=== PATIENT | male | born 1965 | race Two or more races ===

== ENCOUNTER 2022-08-12 23:54 | Inpatient (IN) | payer OTHER ==
[2022-08-13 01:09] LABS: HEMATOCRIT 18.2 % (35.4-49); LYMPH % 21.1 % (8-40); MCH 25.5 pg (25.7-33.7); MCHC 32.3 g/dl (32.0-35.9); MEAN CELL VOLUME 78.8 fl (80-96); MEAN PLT VOLUME 6.3 fl (7.5-11.1); MONO % 10.2 % (3.8-10.2); NEUT % 63.7 % (42.8-82.8); PLATELET COUNT 627 10^3/uL (134-434); RBC 2.31 M/mm3 (4.00-5.60); RDW 17.9 % (11.9-15.9); WHITE BLOOD COUNT 9.8 K/mm3 (4.0-10.0)
[2022-08-13 01:14] LABS: INR 1.1 (0.83-1.09); PROTHROMBIN TIME (PATIENT) 12.7 SEC (9.7-13.0)
[2022-08-13 01:15] LABS: HEMOGLOBIN 5.9 GM/dL (11.7-16.9)
[2022-08-13 01:24] LABS: ALBUMIN 3.2 g/dl (3.4-5.0); CALCIUM 8.9 mg/dL (8.5-10.1)
[2022-08-13 01:25] LABS: BLOOD UREA NITROGEN 20.2 mg/dL (7-18)
[2022-08-13 01:27] LABS: CREATININE 1.1 mg/dL (0.55-1.3)
[2022-08-13 01:29] LABS: BILIRUBIN,TOTAL 0.2 mg/dL (0.2-1); TOT PROT 6.6 g/dl (6.4-8.2)
[2022-08-13] MEDS: PANTOPRAZOLE SODIUM 40 MG VIAL IVPUSH SCH ×2 (04:43→11:24)
[2022-08-13] MEDS ORDERED: POTASSIUM CHLORIDE 10 MEQ in DEXTROSE 5%-NORMAL SALINE 1,000 ML IVPB SCH ×2 (05:15→07:31)
[2022-08-13] MEDS ORDERED: PANTOPRAZOLE SODIUM 40 MG VIAL ONE (05:25)
[2022-08-13] MEDS ORDERED: D5-1/2NS+10 MEQ KCL - 10 MEQ/1,000 ML INFUS.BAG IV SCH ×3 (08:12→21:12)
[2022-08-13 08:23] VITALS: BMI 25.2
[2022-08-13] MEDS: DEXTROSE 5%-NORMAL SALINE 1,000 ML IV SCH (12:17)
[2022-08-13 18:04] VITALS: RESP 18
[2022-08-14] MEDS: DEXTROSE 5%-NORMAL SALINE 1,000 ML IV SCH ×2 (00:11→12:44)
[2022-08-14 08:18] LABS: BASO % 1.1 % (0-2.0); EOS % 4.4 % (0-4.5); LYMPH % 18.6 % (8-40); MCHC 33.3 g/dl (32.0-35.9); MEAN CELL VOLUME 81.1 fl (80-96); MEAN PLT VOLUME 6.8 fl (7.5-11.1); NEUT % 68.9 % (42.8-82.8); PLATELET COUNT 580 10^3/uL (134-434); RBC 2.96 M/mm3 (4.00-5.60); RDW 17.9 % (11.9-15.9); WHITE BLOOD COUNT 10.2 K/mm3 (4.0-10.0)
[2022-08-14 08:32] LABS: BLOOD UREA NITROGEN 11.7 mg/dL (7-18); CALCIUM 8.1 mg/dL (8.5-10.1)
[2022-08-14 08:36] LABS: CREATININE 1.1 mg/dL (0.55-1.3)
[2022-08-14] MEDS ORDERED: FERRIC CARBOXYMALTOSE 750 MG/15 ML VIAL IVPB ONE (08:45)
[2022-08-14] MEDS ORDERED: IRON SUCROSE INJECTION 300 MG in SODIUM CHLORIDE 235 ML IVPB ONE (10:30)
[2022-08-14] MEDS: PANTOPRAZOLE 40 MG TABLET PO SCH (11:35)
[2022-08-14] MEDS: NICOTINE 14 MG/24 HOURS TOPICAL PATCH TD SCH (13:54)
[2022-08-14 13:55] LABS: N-TERMINAL BNP 282.2 pg/ml (5-125)
[2022-08-15 08:33] VITALS: BP 133/77; PULSE 84; TEMP 98.7
[2022-08-15] MEDS ORDERED: REGADENOSON 0.4 MG/5 ML PRE-FILLED SYRINGE IVPUSH ONE ×2 (09:07→09:30)
[2022-08-15] MEDS: PANTOPRAZOLE 40 MG TABLET PO SCH (10:53)
[2022-08-15] MEDS: NICOTINE 14 MG/24 HOURS TOPICAL PATCH TD SCH (10:54)
== END 2022-08-15 13:00 | disposition home or self-care (01) | DRG 378 ==
LOC: JER 23:54 → JERBED 08-13 03:13 → J4W 08-13 07:10
PROVIDERS: ADMIT Internal Medicine; ATTEND Internal Medicine
PROC: 30233N1 Transfusion of Nonautologous Red Blood Cells into Peripheral Vein, Percutaneous Approach (ICD-10-PCS; principal; 2022-08-13)
DX: K92.2 Gastrointestinal hemorrhage, unspecified (principal); D62 Acute posthemorrhagic anemia; I47.1 Supraventricular tachycardia; I95.9 Hypotension, unspecified; F17.210 Nicotine dependence, cigarettes, uncomplicated
CPT/HCPCS: 0241U-QW; 36415; 36430; 71045-TC-FY; 78452-TC; 80048; 80053; 80061; 82272; 82728; 83036; 83540; 83550; 83880; 84443; 84484; 85025; 85610; 86850; 86900; 86901; 86922; 93005; 93010; 93017; 93306-TC; 97116-GP; 97161-GP; 99285-25; A9502; J1756; J2785; P9058